=== PATIENT | female | born 1950 | race Caucasian/White ===

== ENCOUNTER → 2017-09-20 | Outpatient (CLI) | payer MEDICARE ==
[~2017-09-20] MED LIST: BUPROPION XL300 MG PO; CITALOPRAM HBR40 MG PO; FENOFIBRATE160 MG PO; PRAVASTATIN SOD80 MG PO; TRAZODONE HCL100 MG PO
--- NOTE | 2017-09-22 08:31 | Diagnostic Imaging Report ---
#[id number] - MGSCRBIL #BILATERAL DIGITAL SCREENING MAMMOGRAM WITH CAD: 09/20/2017 CLINICAL: Routine screening. Comparison is made to exam dated: 05/14/2016 mammogram - [facility] [place]. Current study contains 5 films. The tissue of both breasts is heterogeneously dense. This may lower the sensitivity of mammography. Current study was also evaluated with a Computer Aided Detection (CAD) system. There are benign scattered calcifications in both breasts. There also is a biopsy clip in the left breast. No significant masses, calcifications, or other findings are seen in either breast. There has been no significant interval change. IMPRESSION: BENIGN There is no mammographic evidence of malignancy. A 1 year screening mammogram is recommended. The patient will be notified by letter of the results. Kuldip ayala/ras:09/21/2017 12:29:30 Online Merchandising Specialist: Yareli AVILA)(Nelda), [facility] [place] letter sent: Compared to Prior B9 Mammogram BI-RADS: 2 Benign
== END | disposition home or self-care (01) ==
LOC: MAMMO 08:54
PROVIDERS: ATTEND Internal Medicine
DX: Z12.31 Encounter for screening mammogram for malignant neoplasm of breast (principal)
CPT/HCPCS: 77067

== ENCOUNTER → 2018-09-21 | Outpatient (CLI) | payer MEDICARE | LOC: MAMMO 10:25 | PROVIDERS: ATTEND Internal Medicine | DX: Z12.31 Encounter for screening mammogram for malignant neoplasm of breast (principal) | CPT/HCPCS: 77067 ==

== ENCOUNTER → 2018-10-13 | Outpatient (CLI) | payer MEDICARE ==
--- NOTE | 2018-10-16 08:38 | Diagnostic Imaging Report ---
#[id number] - MGDXLT #UNILATERAL LEFT DIGITAL DIAGNOSTIC MAMMOGRAM WITH SPOT COMPRESSION AND MAGNIFICATION: 10/13/2018 Comparison is made to exams dated: 09/21/2018 mammogram and 09/20/2017 mammogram - [facility]. Current study contains 5 films. The tissue of the left breast is heterogeneously dense. This may lower the sensitivity of mammography. There is a cluster of amorphous heterogeneous calcifications in the left breast at 1 o'clock middle depth. This is increased in number. No other significant masses or calcifications are seen in the breast. IMPRESSION: SUSPICIOUS OF MALIGNANCY The cluster of amorphous heterogeneous calcifications in the left breast is at a low suspicion for malignancy. A stereotactic biopsy is recommended. A phone call was made to the physician's office. The findings were discussed with the patient. The patient will be contacted by the Mammography Department to schedule this appointment. TORO WALKER M.D. ct/:10/13/2018 12:42:41 Second Cook And Baker: Yareli CONN(Gilberto)(Nelda), [facility] letter sent: Biopsy Required Mammogram BI-RADS: 4a Suspicious abnormality - low suspicion for malignancy
== END ==
LOC: MAMMO 09:01
PROVIDERS: ATTEND Internal Medicine
DX: R92.1 Mammographic calcification found on diagnostic imaging of breast (principal)

== ENCOUNTER → 2021-07-23 | Outpatient (CLI) | payer OTHER | LOC: RAD 11:55 | PROVIDERS: ATTEND Internal Medicine | DX: M16.11 Unilateral primary osteoarthritis, right hip (principal) ==

== ENCOUNTER → 2021-07-23 | Outpatient (CLI) | payer OTHER | LOC: RAD 12:06 | PROVIDERS: ATTEND Orthopaedic Surgery | DX: M25.532 Pain in left wrist (principal) ==